=== PATIENT | male | born 1995 | race Caucasian/White ===

== ENCOUNTER 2017-01-25 17:21 | Emergency (ER) | payer OTHER ==
[~2017-01-25] VITALS: Ht 177.8 cm; Wt 86.0 kg
[2017-01-25 17:34] VITALS: TEMP 36.8; Ht 177.8 cm; Wt 86.0 kg
[2017-01-25] MEDS ORDERED: GABA800T PO (18:04)
[2017-01-25] MEDS ORDERED: OXCA300T PO (18:04)
[2017-01-25] MEDS ORDERED: GDN/80 PO (18:04)
[2017-01-25 18:53] LABS: MEAN CORPUSCULAR HEMOGLOBIN 30.4 pg (25-34); MEAN CORPUSCULAR HGB CONC 35.7 g/dl (32-36); MEAN PLATELET VOLUME 8.7 fL (7.4-10.4); PLATELET COUNT 214 K/uL (130-400); RED BLOOD COUNT 5.53 M/uL (4.7-6.1); WHITE BLOOD COUNT 10.07 K/uL (4.8-10.8)
[2017-01-25 19:14] LABS: CALCIUM 9.4 mg/dl (8.5-10.1); CREATININE 0.81 mg/dl (0.60-1.40); POTASSIUM 3.7 mmol/L (3.5-5.1)
[2017-01-25 19:24] LABS: THYROID STIMULATING HORMONE 2.28 uIu/ml (0.300-4.500)
[2017-01-25] MEDS ORDERED: NICOTINE 14 MG/24 HR TDSY TD STA (19:27)
[2017-01-25] MEDS ORDERED: LORAZEPAM 1 MG TAB SL STA (19:27)
[2017-01-25 19:42] LABS: BENZODIAZEPINE, URINE NEG (NEG); COCAINE,URINE NEG (NEG); PHENCYCLIDINE, URINE NEG (NEG)
[2017-01-25 19:48] LABS: ACETAMINOPHEN < 2 ug/ml (10-30)
[2017-01-25 20:15] VITALS: BP 158/83; PULSE 67; O2SAT 96
[2017-01-25] MEDS ORDERED: ATV/1 PO (20:27)
--- NOTE | 2017-01-26 00:29 | EMERGENCY ROOM VISIT NOTE ---
History Report prepared by Sridhar: Giovana Blevins Under the Supervision of: Dr. Yariel Ramirez M.D. First contact with patient: 17:37 Chief Complaint: MENTAL HEALTH EVALUATION Stated Complaint: EXTREME MOOD SWINGS, ANXIETY, DEPRESSION, SLEEPLES History of Present Illness The patient is a 21 year old male who presents to the Emergency Room for a mental health evaluation. The patient states that he is having an episode of severe anxiety that is starting to cause panic attacks. He reports that he is on vacation and was told by his psychiatrist, who he called last night, to come to the ED if his symptoms worsened. According to his father, he has been having incredible mood swings that go from being calm to being extremely anxious. The father reports that the patient told him yesterday that he felt like his brain was on fire. The patient states that before the his vacation, his psychiatrist was weaning him off of his Trileptal. He reports that right before leaving he had a huge meltdown and was told to take 1/2 a pill if he felt that it was necessary starting 6 days ago. His father states that he talked to his psychiatrist last night and he reports that they wanted him taking a full pill daily. He notes that he takes 3-4 Gabapentin a day. The patient reports extreme nausea in the morning. The father reports that the patient has not been sleeping , isn't being socially active, and no longer plays his guitar. The father reports that he is the legal guardian due to his past mental health history that started as a child. The patient denies suicidal ideation, homicidal ideation, the use of alcohol, and the use of marijuana anymore. He notes he used to take it to help him relax, but it no longer works. The patient notes that he has been hospitalized four time before with the last being at the end of October. The patient notes a history of OCD. Source of History: patient, parent Onset: six days ago Position: other (global) Symptom Intensity: severe Quality: other (global) Timing: worsening, other (episode) Associated Symptoms: + nausea Note: The patient's father complains of lack of sleep and lack of social activity. The patient denies suicidal ideation, homicidal ideation, the use of alcohol, and use of marijuana. Review of Systems See HPI for pertinent positives & negatives. A total of 10 systems reviewed and were otherwise negative. Past Medical & Surgical Medical Problems: (1) History of anxiety (2) History of OCD (obsessive compulsive disorder) Family History No pertinent family history Social History Alcohol Use: none Drug Use: none Marital Status: single Housing Status: lives with family Current/Historical Medications Scheduled Gabapentin (Neurontin), 800 MG PO QID Oxcarbazepine (Trileptal), 150 MG PO BID Ziprasidone Hcl (Geodon), 80 MG PO BID Scheduled PRN Lorazepam (Ativan), 1 MG PO Q12 PRN for Anxiety Allergies Coded Allergies: No Known Allergies (Unverified , 01/25/17) Physical Exam Vital Signs Date Time Temp Pulse Resp B/P (MAP) Pulse Ox O2 Delivery O2 Flow Rate FiO2 01/25/17 20:15 67 16 158/83 96 01/25/17 17:34 36.8 62 16 141/89 97 Room Air Physical Exam Constitutional: Vital signs reviewed. Eyes: Pupils are equal round reactive to light. Conjunctiva are noninjected. ENT: Pharynx is clear without erythema or exudate. Mucous membranes are moist. Neck supple without meningeal signs. Respiratory: Clear to auscultation bilaterally. Breath sounds are equal bilaterally. Cardiovascular: Regular rate and rhythm. No rubs or gallops. GI: Soft, nondistended and nontender. Bowel sounds are present. Musculoskeletal: No peripheral edema. Integumentary: No cyanosis. Neurological: The patient is awake and alert. No focal deficits. Psychiatric: Anxious affect. Medical Decision & Procedures Laboratory Results 01/25/17 18:37 01/25/17 18:37 Test 01/25/17 18:32 01/25/17 18:37 Urine Opiates Screen NEG (NEG) Urine Methadone, Qualitative NEG (NEG) Urine Barbiturates NEG (NEG) Urine Phencyclidine (PCP) Level NEG (NEG) Ur Amphetamine/Methamphetamine NEG (NEG) MDMA (Ecstasy) Screen NEG (NEG) Urine Benzodiazepines Screen NEG (NEG) Urine Cocaine Metabolite NEG (NEG) Urine Marijuana (THC) POS (NEG) Red Blood Count 5.53 M/uL (4.7-6.1) Mean Corpuscular Volume 85.0 fL (80-100) Mean Corpuscular Hemoglobin 30.4 pg (25-34) Mean Corpuscular Hemoglobin Concent 35.7 g/dl (32-36) RDW Standard Deviation 40.0 fL (36.4-46.3) RDW Coefficient of Variation 12.9 % (11.5-14.5) Mean Platelet Volume 8.7 fL (7.4-10.4) Anion Gap 6.0 mmol/L (3-11) Est Creatinine Clear Calc Drug Dose 147.7 ml/min Estimated GFR () 146.2 Estimated GFR (Non- 126.2 BUN/Creatinine Ratio 15.0 (10-20) Calcium Level 9.4 mg/dl (8.5-10.1) Total Bilirubin 0.4 mg/dl (0.2-1) Direct Bilirubin 0.1 mg/dl (0-0.2) Aspartate Amino Transf (AST/SGOT) 15 U/L (15-37) Alanine Aminotransferase (ALT/SGPT) 28 U/L (12-78) Alkaline Phosphatase 74 U/L (45-117) Total Protein 8.0 gm/dl (6.4-8.2) Albumin 4.6 gm/dl (3.4-5.0) Thyroid Stimulating Hormone (TSH) 2.280 uIu/ml (0.300-4.500) Salicylates Level 2.5 mg/dl (2.8-20) Acetaminophen Level < 2 ug/ml (10-30) Ethyl Alcohol mg/dL < 3.0 mg/dl (0-3) Laboratory results as reviewed by me. Medications Administered Medications (Trade) Dose Ordered Sig/Zack Route Start Time Stop Time Status Last Admin Dose Admin Nicotine (Nicoderm Cq 14MG Patch) 1 patch ONE STAT TD 01/25/17 19:27 01/25/17 19:29 DC 01/25/17 19:38 1 PATCH Lorazepam (Ativan Tab) 1 mg NOW STAT SL 01/25/17 19:27 01/25/17 19:29 DC 01/25/17 19:38 1 MG ED Course 1739: The patient was evaluated in room A7. A complete history and physical exam was performed. 1925: The patient is asking for a Nicotine patch and something for his anxiety. 1926: Ordered Ativan Tab 1 mg SL, Nicotine 1 patch TD. 1020: Upon reevaluation, the patient appeared to have improvement of his symptoms. I discussed Benzodiazepine and the adverse affects from it. The patient does not want to be admitted here. He reports feeling much better after the Ativan. the guardian agreed to dispense the Ativan for him. I discussed flo's findings with him and his guardian. They verbalized agreement of the treatment plan. The patient was discharged home. Medical Decision This is a 21-year-old male who presents for mental health evaluation. I did perform a limited focused review of portions of the patient's old chart on the electronic medical record. The patient has had no recent prior visits to this hospital. Medication Reconciliation: I attest that I have personally reviewed the patient' s current medication list. Blood Pressure Screening: Patient was found to have an elevated blood pressure and was referred to their primary doctor for recheck and further treatment. I did evaluate the patient as noted above. I did order and review the patient's blood work as noted in the electronic medical record. I did treat the patient with a nicotine patch and Ativan. He did feel much better. He was evaluated by the mental health correctional counselor/case manager. The patient does not need inpatient treatment. He does not want inpatient treatment. He and his father did request Ativan. They have had experience with this in the past and understand the risks and benefits of using Ativan. His father will dispense the medication for him. He was discharged with a short prescription for Ativan. [place] Drug Monitoring Program Search Results: patient reviewed within database Drug Monitoring Findings: No matching patient found. Impression Primary Impression: Acute anxiety Additional Impression: Bipolar disorder Scribe Attestation The scribe's documentation has been prepared under my direct and personally reviewed by me in its entirety. I confirm that the note above accurately reflects all work, treatment, procedures, and medical decision making performed by me. Departure Information Dispostion Home / Self-Care Prescriptions Lorazepam (ATIVAN) 1 Mg Tab 1 MG PO Q12 Y for Anxiety, #20 TAB Prov: Yariel Ramirez M.D. 01/25/17 Referrals No Doctor, Assigned (PCP) Forms HOME CARE DOCUMENTATION FORM, IMPORTANT VISIT INFORMATION Patient Instructions [facility] Additional Instructions You have been examined and treated today on an emergency basis only. This is not a substitute for, or an effort to provide, complete comprehensive medical care. It is impossible to recognize and treat all injuries or illnesses in a single emergency department visit. It is therefore important that you follow up closely with your physician and psychiatrist. Call as soon as possible for an appointment. Return for worsening symptoms or if you develop thoughts of hurting yourself or others or any other concerning symptoms. Problem Qualifiers Additional Impression: Bipolar disorder Active/Remission status: remission status unspecified Qualified Codes: F31.9 - Bipolar disorder, unspecified
== END 2017-01-25 20:36 | disposition home or self-care (01) ==
LOC: EDBD 17:24 → C.EDB 17:24 → C.EDA 20:36
DX: F41.9 Anxiety disorder, unspecified (principal); F31.9 Bipolar disorder, unspecified; Z79.899 Other long term (current) drug therapy